=== PATIENT | female | born 1945 | race Hispanic/Latino ===

== ENCOUNTER 2017-01-10 07:40 | Day surgery (SDC) | payer MEDICARE, MEDICAID ==
[2017-01-03 08:17] VITALS: BMI 28.3
[2017-01-10] MEDS ORDERED: Iohexol 240 (50 ml) ONE (07:46)
[2017-01-10 08:49] VITALS: BP 111/78; PULSE 67; RESP 18; TEMP 97.6; O2SAT 96
[2017-01-10] MEDS ORDERED: MethylPREDNISolone Depo 40 mg/ml Inj ONE (09:18)
--- NOTE | 2017-01-10 10:15 | OP ---
PROCEDURE DATE: 01/10/2017 PREOPERATIVE DIAGNOSIS: Spinal stenosis and disk derangement. POSTOPERATIVE DIAGNOSIS: Spinal stenosis and disk derangement. OPERATION: Left L4-L5 lumbar epidural steroid injection. SURGEONS: Glenn Bernardo MD. ANESTHESIA: Local. PROCEDURE: The patient was brought to the operating room and placed on operating table in the prone position. The patient's back was sterilely prepped and draped. Lidocaine with epinephrine was used to infiltrate the site for the needle insertion as located under fluoroscopy. A 20-gauge Touhy needl e was inserted down to the level of the superior lamina of L5 and slowly advanced cephalad until it w as felt to go through the ligamentum. At that time, there was a loss of resistance to the attached s yringe, but no fluid on drawback. In order to confirm location of the needle, a lumbar epidurogram w as then performed. This will be dictated under separate cover. After the completion of the epidurogram, the patient received her epidural injection. A mixture of 8 0 mg of Depo-Medrol and normal saline was slowly injected into the epidural space. It flowed freely without resistance. The needle was then withdrawn, a bacitracin Band-Aid dressing applied. The maci ent was gently transferred back onto her stretcher and taken back to same-day surgery in stable condi tion. She tolerated the procedure well. Glenn Bernardo MD cc: [id number] TT: 01/10/2017 10:15:15 jn
--- NOTE | 2017-01-10 10:17 | OP ---
PROCEDURE DATE: 01/10/2017 PREOPERATIVE DIAGNOSIS: Spinal stenosis and disk derangement. POSTOPERATIVE DIAGNOSIS: Spinal stenosis and disk derangement. OPERATION: Epidurogram of the lumbar spine. PROCEDURE: Once the patient was positioned on the operating table in the prone position with her peter k sterilely prepped and draped and a Tuohy needle placed that was felt to be the epidural space, an e pidurogram of the lumbar spine was performed. Two milliliters of Omnipaque 240 contrast was slowly i njected through the needle, and flowed freely without resistance. As visualized and interpreted on t he fluoroscopic monitor as noted to outline the epidural space. Having verified location of the need le, we then proceeded with administration of the patient's epidural injection. Glenn Bernardo MD cc: [id number] TT: 01/10/2017 10:17:35 leyda
--- NOTE | 2017-01-10 16:50 | RAD ---
PROCEDURE: Intraoperative fluoroscopy HISTORY: SPINAL STENOSIS COMPARISON: Not available TECHNIQUE: Intraoperative fluoroscopy was provided for percutaneous spinal procedure. Total time of fluoroscopy was 9.4 seconds. FINDINGS: Two fluoroscopic spot films are submitted. Films are on file for review. IMPRESSION: Fluoroscopy provided.
== END 2017-01-10 10:31 | disposition home or self-care (01) ==
LOC: C.SDS 07:40
PROVIDERS: ATTEND Orthopaedic Surgery Orthopaedic Surgery of the Spine
DX: M48.06 Spinal stenosis, lumbar region (principal)
CPT/HCPCS: 62323; 72275; 76000; J1030; Q9966